=== PATIENT | female | born 2000 | race Caucasian/White ===

== ENCOUNTER 2019-02-03 08:00 | Emergency (ER) | payer SELFPAY ==
[~2019-02-03] VITALS: Ht 180.3 cm; Wt 61.2 kg
[2019-02-03] MEDS ORDERED: birth control pill (08:12)
[2019-02-03] MEDS: IBUPROFEN 800 MG TABLET PO ONE (08:53)
--- NOTE | 2019-02-03 08:53 | NUR ---
PT IS IN ROOM #2A. DR MOREJON EVALUATED THE PT.
[2019-02-03] MEDS ORDERED: IBUPROFEN 800 MG TABLET ONE (08:54)
--- NOTE | 2019-02-03 09:48 | NUR ---
DC, RX AND FOLLOW UP INSTRUCTIONS GIVEN AND EXPLAINED TO PATIENT WHO STATES SHE UNDERSTANDS ALL INSTRUCTIONS.
== END 2019-02-03 09:50 | disposition home or self-care (01) ==
LOC: ER 08:00
DX: S06.0X0A Concussion without loss of consciousness, initial encounter (principal); S16.1XXA Strain of muscle, fascia and tendon at neck level, initial encounter; Z95.0 Presence of cardiac pacemaker; V43.53XA Car driver injured in collision with pick-up truck in traffic accident, initial encounter; Y93.89 Activity, other specified; Y92.410 Unspecified street and highway as the place of occurrence of the external cause; Y99.8 Other external cause status
CPT/HCPCS: 71045; 72125; 93005; A4663